=== PATIENT | female | born 1980 | race Caucasian/White ===

== ENCOUNTER 2018-10-02 23:35 | Emergency (ER) | payer BC ==
[2018-10-02] MEDS ORDERED: Sodium Chloride 0.9% 20 ML ONE (23:51)
[2018-10-02] MEDS: Pantoprazole 40 MG Vial IVPUSH ONE (23:57)
[2018-10-03 00:07] LABS: CHLORIDE,CL 106 mmol/L (98-107); SODIUM,NA 140 mmol/L (136-145)
[2018-10-03] MEDS: Sodium Chloride 0.9% 1,000 ML IV ONE (00:17)
--- NOTE | 2018-10-03 00:22 | CR ---
Indication: Left anterior chest pain Technique: Chest 1 view Comparison: None Findings/Impression: Cardiovascular and mediastinum: Heart size and vasculature are normal in caliber and appearance. Mediastinum is within normal limits. Lungs and pleural space: Lungs are clear. No sign of infiltrate or mass. No sign of pleural effusion. No pneumothorax. Bones and soft tissues: No significant findings. Dictated by Esther Vazquez MD @ Oct 03 2018 12:20AM Signed by Dr. Esther Vazquez @ Oct 03 2018 12:20AM
--- NOTE | 2018-10-03 00:34 | EDM.PDOC ---
ED HPI GENERAL MEDICAL PROBLEM - General Chief Complaint: Chest Pain Stated Complaint: PT HAS CHEST PAINS Time Seen by Provider: 10/03/18 00:32 Source of Information: Reports: Patient - History of Present Illness INITIAL COMMENTS - FREE TEXT/NARRATIVE: HISTORY AND PHYSICAL: History of present illness: [Shunt presents with left-sided chest wall pain that began 3 days prior after lifting some luggage's worsened by movement and reproducible on her anterior left chest wall just below her left breast no fever nausea vomiting chills sweats no redness breath headache dizziness or palpitation no radiation arm neck or jaw no association with diaphoresis or shortness of breath ] Review of systems: As per history of present illness and below otherwise all systems reviewed and negative. Past medical history: As per history of present illness and as reviewed below otherwise noncontributory. Surgical history: As per history of present illness and as reviewed below otherwise noncontributory. Social history: No reported history of drug or alcohol abuse. Family history: As per history of present illness and as reviewed below otherwise noncontributory. Physical exam: HEENT: Atraumatic, normocephalic, pupils reactive, negative for conjunctival pallor or scleral icterus, mucous membranes moist, throat clear, neck supple, nontender, trachea midline. Lungs: Clear to auscultation, breath sounds equal bilaterally, chest nontender. Heart: S1S2, regular, negative for clicks, rubs, or JVD. Abdomen: Soft, nondistended, nontender. Negative for masses or hepatosplenomegaly. Negative for costovertebral tenderness. Pelvis: Stable nontender. Genitourinary: Deferred. Rectal: Deferred. Extremities: Atraumatic, negative for cords or calf pain. Neurovascular unremarkable. Neuro: Awake, alert, oriented. Cranial nerves II through XII unremarkable. Cerebellum unremarkable. Motor and sensory unremarkable throughout. Exam nonfocal. Diagnostics: [cBC CMP UA troponin] EKG Chest 1 view Therapeutics: [Herbal saline Proton X 80 mg IV Toradol 30 mg IV ] Impression: [ chest wall pain ] Definitive disposition and diagnosis as appropriate pending reevaluation and review of above. chest Pain Score (Numeric/FACES): 4 - Related Data Allergies Allergy/AdvReac Type Severity Reaction Status Date / Time narcotics Allergy Hypotension Uncoded 10/02/18 23:43 Home Meds: Home Meds Dextroamphetamine/Amphetamine [Adderall] 20 mg PO DAILY PRN 07/23/18 [History] Biotin 0 mg PO DAILY 10/02/18 [History] Cyanocobalamin (Vitamin B12) [Vitamin B12] 0 mg PO DAILY 10/02/18 [History] Multivitamin [Multivitamins] 1 tab PO DAILY 10/02/18 [History] Past Medical History HEENT History: Reports: None Cardiovascular History: Reports: None Respiratory History: Reports: None Gastrointestinal History: Reports: None Genitourinary History: Reports: None 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: Polycystic Ovaries, Musculoskeletal History: Reports: Back Pain, Chronic Neurological History: Reports: None Psychiatric History: Reports: ADD Endocrine/Metabolic History: Reports: Obesity/BMI 30+ Hematologic History: Reports: None Immunologic History: Reports: None Oncologic (Cancer) History: Reports: None Dermatologic History: Reports: None - Infectious Disease History Infectious Disease History: Reports: Chicken Pox - Past Surgical History Head Surgeries/Procedures: Reports: None HEENT Surgical History: Reports: Oral Surgery Other HEENT Surgeries/Procedures: dental implants Cardiovascular Surgical History: Reports: None Respiratory Surgical History: Reports: None GI Surgical History: Reports: Bariatric Procedure, Cholecystectomy Other GI Surgeries/Procedures: gastric sleeve, November of 2017 Female Surgical History: Reports: None Endocrine Surgical History: Reports: None Neurological Surgical History: Reports: None Musculoskeletal Surgical History: Reports: None Oncologic Surgical History: Reports: None Dermatological Surgical History: Reports: None Social & Family History - Family History Family Medical History: Noncontributory - Tobacco Use Smoking Status *Q: Never Smoker Second Hand Smoke Exposure: No - Caffeine Use Caffeine Use: Reports: Coffee - Recreational Drug Use Recreational Drug Use: No ED ROS GENERAL - Review of Systems Review Of Systems: See Below ED EXAM, GENERAL - Physical Exam Exam: See Below Course - Vital Signs Last Recorded V/S: Last Vital Signs Temp 96.8 F 10/02/18 23:39 Pulse 70 10/02/18 23:39 Resp 18 10/02/18 23:39 BP 118/74 10/02/18 23:39 Pulse Ox 98 10/02/18 23:39 - Orders/Labs/Meds Orders: Active Orders 24 hr Category Date Time Status EKG Documentation Completion [RC] STAT Care 10/02/18 23:44 Active HCG QUALITATIVE,URINE [URCHEM] Stat Lab 10/02/18 23:45 Ordered UA RFX CLARY AND CULT IF INDIC [URIN] Stat Lab 10/02/18 23:44 Ordered Sodium Chloride 0.9% [Normal Saline] 1,000 ml Med 10/03/18 00:16 Active IV STAT Medication Orders Sodium Chloride (Normal Saline) 1,000 mls @ 999 mls/hr IV STAT ONE Stop: 10/03/18 01:16 Last Admin: 10/03/18 00:17 Dose: 999 mls/hr Labs: Laboratory Tests 10/02/18 10/02/18 Range/Units 23:35 23:35 WBC 8.51 (4.0-11.0) K/uL RBC 4.73 (4.30-5.90) M/uL Hgb 13.6 (12.0-16.0) g/dL Hct 40.6 (36.0-46.0) % MCV 85.8 (80.0-98.0) fL MCH 28.8 (27.0-32.0) pg MCHC 33.5 (31.0-37.0) g/dL RDW Std Deviation 40.8 (28.0-62.0) fl RDW Coeff of Judi 13 (11.0-15.0) % Plt Count 231 (150-400) K/uL MPV 11.10 (7.40-12.00) fL Neut % (Auto) 61.4 (48.0-80.0) % Lymph % (Auto) 29.3 (16.0-40.0) % Carlton % (Auto) 7.5 (0.0-15.0) % Eos % (Auto) 1.3 (0.0-7.0) % Baso % (Auto) 0.5 (0.0-1.5) % Neut # (Auto) 5.2 (1.4-5.7) K/uL Lymph # (Auto) 2.5 H (0.6-2.4) K/uL Carlton # (Auto) 0.6 (0.0-0.8) K/uL Eos # (Auto) 0.1 (0.0-0.7) K/uL Baso # (Auto) 0.0 (0.0-0.1) K/uL Nucleated RBC % 0.0 /100WBC Nucleated RBCs # 0 K/uL Sodium 140 (136-145) mmol/L Potassium 3.4 L (3.5-5.1) mmol/L Chloride 106 (98-107) mmol/L Carbon Dioxide 27.5 (21.0-32.0) mmol/L BUN 12 (7.0-18.0) mg/dL Creatinine 1.0 (0.6-1.0) mg/dL Est Cr Clr Drug Dosing TNP Estimated GFR (MDRD) > 60.0 ml/min Glucose 89 (74-106) mg/dL Calcium 9.2 (8.5-10.1) mg/dL Total Bilirubin 0.3 (0.2-1.0) mg/dL AST 15 (15-37) IU/L ALT 17 (14-63) IU/L Alkaline Phosphatase 54 (46-116) U/L Troponin I < 0.050 (0.000-0.056) ng/mL Total Protein 6.6 (6.4-8.2) g/dL Albumin 3.7 (3.4-5.0) g/dL Globulin 2.9 (2.6-4.0) g/dL Albumin/Globulin Ratio 1.3 (0.9-1.6) Lipase 178 (73-393) U/L Meds: Medications Generic Name Dose Route Start Last Admin Trade Name Freq PRN Reason Stop Dose Admin Sodium Chloride 1,000 mls @ 999 mls/hr 10/03/18 00:16 10/03/18 00:17 Normal Saline IV 10/03/18 01:16 999 mls/hr STAT ONE Administration Discontinued Medications Generic Name Dose Route Start Last Admin Trade Name Freq PRN Reason Stop Dose Admin Sodium Chloride Confirm 10/02/18 23:51 Normal Saline Administered 10/02/18 23:52 Dose 20 mls @ as directed .ROUTE .STK-MED ONE Pantoprazole Sodium 80 mg 10/02/18 23:45 10/02/18 23:57 Protonix Iv IVPUSH 10/02/18 23:46 80 mg .BOLUS ONE Administration Departure - Departure Time of Disposition: 00:33 Disposition: Home, Self-Care 01 Condition: Good Clinical Impression: Chest wall pain - Discharge Information Referrals: PCP,None [Primary Care Provider] - Additional Instructions: The following information is given to patients seen in the emergency department who are being discharged to home. This information is to outline your options for follow-up care. We provide all patients seen in our emergency department with a follow-up referral. The need for follow-up, as well as the timing and circumstances, are variable depending upon the specifics of your emergency department visit. If you don't have a primary care physician on staff, we will provide you with a referral. We always advise you to contact your personal physician following an emergency department visit to inform them of the circumstance of the visit and for follow-up with them and/or the need for any referrals to a consulting specialist. The emergency department will also refer you to a specialist when appropriate. This referral assures that you have the opportunity for follow-up care with a specialist. All of these measure are taken in an effort to provide you with optimal care, which includes your follow-up. Under all circumstances we always encourage you to contact your private physician who remains a resource for coordinating your care. When calling for follow-up care, please make the office aware that this follow-up is from your recent emergency room visit. If for any reason you are refused follow-up, please contact the [facility] emergency department at and asked to speak to the emergency department charge nurse. . - My Orders Last 24 Hours: My Active Orders 10/02/18 23:44 EKG Documentation Completion [RC] STAT UA RFX CLARY AND CULT IF INDIC [URIN] Stat 10/02/18 23:45 HCG QUALITATIVE,URINE [URCHEM] Stat 10/03/18 00:16 Sodium Chloride 0.9% [Normal Saline] 1,000 ml IV STAT - Assessment/Plan Last 24 Hours: My Active Orders 10/02/18 23:44 EKG Documentation Completion [RC] STAT UA RFX CLARY AND CULT IF INDIC [URIN] Stat 10/02/18 23:45 HCG QUALITATIVE,URINE [URCHEM] Stat 10/03/18 00:16 Sodium Chloride 0.9% [Normal Saline] 1,000 ml IV STAT
[2018-10-03] MEDS: Ketorolac 10 MG Tab PO ONE (00:54)
== END 2018-10-03 00:56 | disposition home or self-care (01) ==
LOC: MW.ED 23:35
DX: R07.89 Other chest pain (principal); F98.8 Other specified behavioral and emotional disorders with onset usually occurring in childhood and adolescence; Z88.5 Allergy status to narcotic agent; Z79.899 Other long term (current) drug therapy
CPT/HCPCS: 36415; 71045; 80053; 83690; 84484; 85025; 93005; 96361; 96374; 99285; A9270; C9113; J7040

== ENCOUNTER 2018-10-03 18:16 | Emergency (ER) | payer BC ==
--- NOTE | 2018-10-03 18:17 | EDM.PDOC ---
ED HPI GENERAL MEDICAL PROBLEM - General Stated Complaint: PT HAS CHEST PAINS Time Seen by Provider: 10/03/18 18:17 Source of Information: Reports: Patient History Limitations: Reports: No Limitations - History of Present Illness INITIAL COMMENTS - FREE TEXT/NARRATIVE: HISTORY AND PHYSICAL: History of present illness: Patient here with complaints of rib pain. Patient was seen early this morning in the ER for the same complaint. Lab work, EKG and chest x-ray that were completed were unremarkable. She was discharged to home with prescription for Toradol. She states that she desires a muscle relaxant is not comfortable taking anti-inflammatories. She states no new complaints from prior worked up and only desires a muscle relaxant. She denies any fever, chills, chest pain, shortness of breath, abdominal pain, nausea, vomiting, diarrhea or constipation. She has been eating and drinking appropriately. Review of systems: As per history of present illness and below otherwise all systems reviewed and negative. Past medical history: As per history of present illness and as reviewed below otherwise noncontributory. Surgical history: As per history of present illness and as reviewed below otherwise noncontributory. Social history: See social history for further information Family history: As per history of present illness and as reviewed below otherwise noncontributory. Physical exam: General: Patient is alert, oriented, and in no acute distress. She is sitting comfortably on exam table. HEENT: Atraumatic, normocephalic, pupils equal and reactive bilaterally, negative for conjunctival pallor or scleral icterus, mucous membranes moist, TMs normal bilaterally, throat clear, neck supple, nontender, trachea midline. No drooling or trismus noted. No meningeal signs. No hot potato voice noted. Lungs: Clear to auscultation, breath sounds equal bilaterally, chest nontender. Heart: S1S2, regular rate and rhythm without overt murmur Abdomen: Soft, nondistended, nontender. Negative for masses or hepatosplenomegaly. Negative for costovertebral tenderness. Pelvis: Stable nontender. Genitourinary: Deferred. Rectal: Deferred. Skin: Intact, warm, dry. No lesions or rashes noted. Extremities: Atraumatic, negative for cords or calf pain. Neurovascular unremarkable. Neuro: Awake, alert, oriented. Cranial nerves II through XII unremarkable. Cerebellum unremarkable. Motor and sensory unremarkable throughout. Exam nonfocal. Notes: Did perform EKG today. Patient was given an IM injection of Norflex today in the ER. We'll send her with Flexeril No. 15 for home use. Supportive care measures were reviewed and discussed. Voices understanding and is agreeable to plan of care. Denies any further questions or concerns at this time. Diagnostics: EKG Therapeutics: Norflex Prescription: Flexeril No. 15 Impression: Chest pain, unspecified Plan: 1. Take medications as prescribed. Continue to alternate Tylenol and ibuprofen as directed. 2. Follow-up with your primary care provider in the next 1-2 days. 3. Return to the ED as needed and as discussed. Definitive disposition and diagnosis as appropriate pending reevaluation and review of above. Back Pain Score (Numeric/FACES): 8 - Related Data Allergies Allergy/AdvReac Type Severity Reaction Status Date / Time narcotics Allergy Hypotension Uncoded 10/03/18 18:26 Home Meds: Home Meds Dextroamphetamine/Amphetamine [Adderall] 20 mg PO DAILY PRN 07/23/18 [History] Biotin 0 mg PO DAILY 10/02/18 [History] Cyanocobalamin (Vitamin B12) [Vitamin B12] 0 mg PO DAILY 10/02/18 [History] Multivitamin [Multivitamins] 1 tab PO DAILY 10/02/18 [History] Past Medical History HEENT History: Reports: None Cardiovascular History: Reports: None Respiratory History: Reports: None Gastrointestinal History: Reports: None Genitourinary History: Reports: None 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, Musculoskeletal History: Reports: Back Pain, Chronic Neurological History: Reports: None Psychiatric History: Reports: ADD Endocrine/Metabolic History: Reports: Obesity/BMI 30+ Hematologic History: Reports: None Immunologic History: Reports: None Oncologic (Cancer) History: Reports: None Dermatologic History: Reports: None - Infectious Disease History Infectious Disease History: Reports: Chicken Pox - Past Surgical History Head Surgeries/Procedures: Reports: None HEENT Surgical History: Reports: Oral Surgery Other HEENT Surgeries/Procedures: dental implants Cardiovascular Surgical History: Reports: None Respiratory Surgical History: Reports: None GI Surgical History: Reports: Bariatric Procedure, Cholecystectomy Other GI Surgeries/Procedures: gastric sleeve, November of 2017 Female Surgical History: Reports: None Endocrine Surgical History: Reports: None Neurological Surgical History: Reports: None Musculoskeletal Surgical History: Reports: None Oncologic Surgical History: Reports: None Dermatological Surgical History: Reports: None Social & Family History - Family History Family Medical History: Noncontributory - Caffeine Use Caffeine Use: Reports: Coffee ED ROS GENERAL - Review of Systems Review Of Systems: ROS reveals no pertinent complaints other than HPI. ED EXAM, GENERAL - Physical Exam Exam: See Below (See dictation) Course - Vital Signs Last Recorded V/S: Last Vital Signs Temp 97.5 F 10/03/18 18:26 Pulse 80 10/03/18 18:26 Resp 16 10/03/18 18:26 BP 130/72 10/03/18 18:26 Pulse Ox 100 10/03/18 18:26 - Orders/Labs/Meds Orders: Active Orders 24 hr Category Date Time Status EKG Documentation Completion [RC] STAT Care 10/03/18 18:18 Active Chest 1V Frontal [CR] Stat Exams 10/03/18 18:18 Stop Req Orphenadrine [Norflex] Med 10/03/18 19:00 Active 60 mg IM Q12H Medication Orders Orphenadrine Citrate (Norflex) 60 mg IM Q12H TOMI Meds: Medications Generic Name Dose Route Start Last Admin Trade Name Freq PRN Reason Stop Dose Admin Orphenadrine Citrate 60 mg 10/03/18 19:00 Norflex IM Q12H TOMI Discontinued Medications Generic Name Dose Route Start Last Admin Trade Name Freq PRN Reason Stop Dose Admin Aspirin 324 mg 10/03/18 18:18 Aspirin PO 10/03/18 18:19 ONETIME ONE Departure - Departure Time of Disposition: 18:53 Disposition: Home, Self-Care 01 Clinical Impression: Chest pain Qualifiers: Chest pain type: unspecified Qualified Code(s): R07.9 - Chest pain, unspecified Instructions: Chest Wall Pain Additional Instructions: The following information is given to patients seen in the emergency department who are being discharged to home. This information is to outline your options for follow-up care. We provide all patients seen in our emergency department with a follow-up referral. The need for follow-up, as well as the timing and circumstances, are variable depending upon the specifics of your emergency department visit. If you don't have a primary care physician on staff, we will provide you with a referral. We always advise you to contact your personal physician following an emergency department visit to inform them of the circumstance of the visit and for follow-up with them and/or the need for any referrals to a consulting specialist. The emergency department will also refer you to a specialist when appropriate. This referral assures that you have the opportunity for follow-up care with a specialist. All of these measure are taken in an effort to provide you with optimal care, which includes your follow-up. Under all circumstances we always encourage you to contact your private physician who remains a resource for coordinating your care. When calling for follow-up care, please make the office aware that this follow-up is from your recent emergency room visit. If for any reason you are refused follow-up, please contact the [facility] Emergency Department at and asked to speak to the emergency department charge nurse. [facility] [address] [place] [address] [place] [address] 1. Take medications as prescribed. Continue to alternate Tylenol and ibuprofen as directed. 2. Follow-up with your primary care provider in the next 1-2 days. 3. Return to the ED as needed and as discussed. - My Orders Last 24 Hours: My Active Orders 10/03/18 18:18 EKG Documentation Completion [RC] STAT Chest 1V Frontal [CR] Stat 10/03/18 19:00 Orphenadrine [Norflex] 60 mg IM Q12H - Assessment/Plan Last 24 Hours: My Active Orders 10/03/18 18:18 EKG Documentation Completion [RC] STAT Chest 1V Frontal [CR] Stat 10/03/18 19:00 Orphenadrine [Norflex] 60 mg IM Q12H
[2018-10-03] MEDS ORDERED: Aspirin 81 MG Tab.Chew PO ONE (18:18)
== END 2018-10-03 19:20 | disposition home or self-care (01) ==
LOC: MW.ED 18:16
DX: R07.81 Pleurodynia (principal); Z88.5 Allergy status to narcotic agent; Z79.899 Other long term (current) drug therapy
CPT/HCPCS: 93005; 96372; 99284; J2360; 36415; 71045; 71045-26; 80053; 83690; 84484; 85025; 96361; 96374; 99283; 99285-25; A9270-GY; C9113; J7040

== ENCOUNTER 2025-07-17 00:14 | Emergency (ER) | payer OTHER ==
[2025-07-17] MEDS ORDERED: Sodium Chloride 0.9% 2.5 ML Syringe FLUSH PRN (00:30)
[2025-07-17] MEDS ORDERED: Sodium Chloride 0.9% 10 ML Syringe FLUSH PRN (00:30)
[2025-07-17] MEDS: Amoxicillin/Clavulanate K 875-125 MG Tab PO ONE (00:39)
[2025-07-17] MEDS: diphenhydrAMINE 50 MG/ML SDV IVPUSH ONE (00:40)
[2025-07-17] MEDS: Ketorolac 30 MG/ML SDV IVPUSH ONE (00:41)
[2025-07-17] MEDS: Prochlorperazine 10 MG/2 ML SDV IVPUSH ONE (00:41)
[2025-07-17] MEDS: Dexamethasone Sod Phos Preservative Free 10 MG/ML Vial IVPUSH ONE (00:41)
[2025-07-17 00:44] LABS: BASOPHILS ABSOLUTE AUTO 0.07 K/uL (0.00-0.20); BASOPHILS PERCENT AUTO 0.5 % (0.0-1.0); EOSINOPHILS ABSOLUTE AUTO 0.04 K/uL (0.00-0.45); EOSINOPHILS PERCENT AUTO 0.3 % (0.0-6.0); IMMATURE GRAN ABSOLUTE AUTO 0.06 K/uL (0.00-0.05); IMMATURE GRAN PERCENT AUTO 0.4 % (0.0-0.4); LYMPHOCYTES ABSOLUTE AUTO 0.66 K/uL (1.00-4.80); LYMPHOCYTES PERCENT AUTO 4.9 % (24.0-44.0); MEAN PLATELET VOLUME 10.3 fL (9.4-12.3); MONOCYTES ABSOLUTE AUTO 1.07 K/uL (0.00-0.80); MONOCYTES PERCENT AUTO 8.0 % (0.0-8.0); NEUTROPHILS ABSOLUTE AUTO 11.50 K/uL (1.80-7.70); NEUTROPHILS PERCENT AUTO 85.9 % (41.0-71.0); NRBC ABSOLUTE 0.00 K/uL (0.00-0.02); NRBC PERCENT 0.0 /100WBC (0.0-0.2); PLATELET COUNT,PLT 221 K/uL (150-400); RED BLOOD CELL COUNT 4.64 M/uL (4.10-5.30); WHITE BLOOD CELL COUNT,WBC 13.40 K/uL (3.9-11.3)
[2025-07-17 01:15] LABS: A/G RATIO 1.0 (0.9-1.6); ALANINE AMINOTRANSFERASE,ALT 55.0 IU/L (14-63); ASPARTATE AMNIOTRANSFERASE,AST 47.0 IU/L (15-37); BILIRUBIN TOTAL 0.4 mg/dL (0.2-1.0); BLOOD UREA NITROGEN,BUN 9.0 mg/dL (7.0-18.0); CARBON DIOXIDE,CO2 25.0 mmol/L (21.0-32.0); CHLORIDE,CL 104.0 mmol/L (98-107); CREATININE 1.1 mg/dL (0.6-1.0); EST CRCL DRUG DOSING (CG) 55.77 mL/min; GLUCOSE RANDOM 203.0 mg/dL (74-106); POTASSIUM,K 4.0 mmol/L (3.5-5.1); PROTEIN TOTAL,TP 6.8 g/dL (6.4-8.2); SODIUM,NA 137.0 mmol/L (136-145)
[2025-07-17 01:18] LABS: ESTIMATED GFR 63.0 mL/min (>60)
== END 2025-07-17 01:46 | disposition home or self-care (01) ==
LOC: MW.ED 00:14
DX: G43.909 Migraine, unspecified, not intractable, without status migrainosus (principal); J02.0 Streptococcal pharyngitis; Z88.8 Allergy status to other drugs, medicaments and biological substances; Z79.899 Other long term (current) drug therapy; Z90.49 Acquired absence of other specified parts of digestive tract
CPT/HCPCS: 36415; 80053; 83735; 85025; 96374; 96375; 99284; A9270; J0780; J1100; J1200; J1885

== ENCOUNTER 2025-07-23 22:09 | Emergency (ER) | payer SELFPAY | END 2025-07-24 00:12 | disposition home or self-care (01) | LOC: MW.ED 22:09 | DX: I77.74 Dissection of vertebral artery (principal); E66.9 Obesity, unspecified; Z68.35 Body mass index [BMI] 35.0-35.9, adult; Z88.5 Allergy status to narcotic agent; Z79.82 Long term (current) use of aspirin; Z79.899 Other long term (current) drug therapy; Z90.49 Acquired absence of other specified parts of digestive tract | CPT/HCPCS: 99283; A9270 ==